=== PATIENT | female | born 1990 | race Caucasian/White ===

== ENCOUNTER → 2018-02-05 | Outpatient (CLI) | payer OTHER ==
--- NOTE | 2018-02-06 08:45 | MM ---
Reason for exam: clinical finding. Indicated problem(s): lump or thickening in the right breast. Physical Findings: Nurse Summary: 1 x 0.5 x 0.5cm nodule in the right breast at 3 o'clock/12 o'clock and a 1 x 0.5cm nodule in the left breast at 1 o'clock (nurse ts). MG 3D Diag Mammo W/Cad VERÓNICA Bilateral CC and MLO view(s) were taken. The breast tissue is heterogeneously dense. This may lower the sensitivity of mammography. There is no dominant lesion. These results were verbally communicated with the patient and result sheet given to the patient on 02/05/18. ASSESSMENT: Incomplete: need additional imaging evaluation, BI-RAD 0 RECOMMENDATION: Ultrasound of both breasts. (palpable by nurse)
--- NOTE | 2018-02-06 08:58 | USB ---
Reason for exam: clinical finding. US Breast BILAT Right complete breast ultrasound includes all four quadrants, the retroareolar region and axilla. Finding demonstrates a 0.2 x 0.2 x 0.2cm oval, cystic lesion at 3 o'clock, a 0.4 x 0.4 x 0.3cm oval, lobular, cystic lesion at 7 o'clock and a 0.6 x 0.6 x 0.2cm oval, cystic lesion at 10 o'clock. Left complete breast ultrasound includes all four quadrants, the retroareolar region and axilla. Finding demonstrates a 0.4 x 0.3 x 0.2cm oval, cystic lesion at 1 o'clock. Consistent with benign fibrocystic change. These results were verbally communicated with the patient and result sheet given to the patient on 02/05/18. ASSESSMENT: Benign, BI-RAD 2 RECOMMENDATION: Clinical management of both breasts. Manage patient on a clinical basis.
== END | disposition home or self-care (01) ==
LOC: RADMAMWWP 13:46
PROVIDERS: ATTEND Family Medicine
DX: N63.10 Unspecified lump in the right breast, unspecified quadrant (principal)
CPT/HCPCS: 77062; 77066

== ENCOUNTER → 2018-04-17 | Outpatient (CLI) | payer OTHER ==
--- NOTE | 2018-04-19 11:39 | MR ---
EXAMINATION TYPE: MR lumbar spine wo/w con DATE OF EXAM: 04/17/2018 COMPARISON: Prior exam 11/23/2015 HISTORY: LBP, lt sciatica pain, prior surgery TECHNIQUE: Multiplanar, multisequence images of the lumbar spine were acquired utilizing 5.5 mL intravenous Gada vist gadolinium contrast. L1-L2: Normal disc appearance without desiccation. No herniation, protrusion or disc bulging. No ca nal stenosis is present. Foramina are patent bilaterally. L2-L3: Normal disc appearance without desiccation. No herniation, protrusion or disc bulging. No ca nal stenosis is present. Foramina are patent bilaterally. There is some facet arthropathy present wi th hypertrophy ligamentum flavum. L3-L4: Normal disc appearance without desiccation. No herniation, protrusion or disc bulging. No ca nal stenosis is present. Foramina are patent bilaterally. Facet arthropathy is present. L4-L5: Facet arthropathy is present causing some local mass effect posterior laterally on the thecal sac, no significant central stenosis or evident disc herniation. No foraminal encroachment. L5-S1: Laminectomy change is present. There is no significant spinal stenosis or foraminal encroachme nt. No disc herniation. Lumbar segments are intact. No paraspinal masses are identified. Conus medullaris has a normal appe arance. Patient is status post posterior lumbar sacral fusion L5-S1, susceptibility artifact due to p atient's hardware is present. Intervertebral spacing blocks present at L5-S1. No abnormal enhancement following contrast administration. IMPRESSION: Postop changes. Facet arthropathy.
== END | disposition home or self-care (01) ==
LOC: RADMRIMAIN 20:00
PROVIDERS: ATTEND Physician Assistant
DX: M46.96 Unspecified inflammatory spondylopathy, lumbar region (principal); Z98.890 Other specified postprocedural states
CPT/HCPCS: 72158; A9581

== ENCOUNTER → 2019-06-07 | Outpatient (CLI) | payer OTHER ==
--- NOTE | 2019-06-07 22:12 | MR ---
EXAMINATION TYPE: MR lumbar spine wo/w con DATE OF EXAM: 06/07/2019 COMPARISON: Prior lumbar MRI 04/17/2018 HISTORY: Lumbago with Sciatica / Effusion TECHNIQUE: Multiplanar, multisequence images of the lumbar spine were acquired utilizing 6.5 mL intravenous Gada vist gadolinium contrast. L1-L2: Normal disc appearance without desiccation. No herniation, protrusion or disc bulging. No ca nal stenosis is present. Foramina are patent bilaterally. L2-L3: Normal disc appearance without desiccation. No herniation, protrusion or disc bulging. No ca nal stenosis is present. Foramina are patent bilaterally. L3-L4: Normal disc appearance without desiccation. No herniation, protrusion or disc bulging. No ca nal stenosis is present. Foramina are patent bilaterally. L4-L5: Facet arthropathy noted. No significant foraminal encroachment. No central stenosis. L5-S1: Stable appearance. Postop changes. No significant central stenosis. No foraminal encroachment evident. Laminectomy change. Lumbar segments are intact. No paraspinal masses are identified. Conus medullaris has a normal appe arance. Posterior fusion at L5-S1 again noted, there is susceptibility artifact due to patient's hard barrow, intervertebral spacing cage is present. No abnormal enhancement on contrast administration. IMPRESSION: Stable postoperative findings.
== END ==
LOC: RADMRIMAIN 16:59
PROVIDERS: ATTEND Physician Assistant Medical
DX: M54.42 Lumbago with sciatica, left side (principal); M43.26 Fusion of spine, lumbar region; Z98.890 Other specified postprocedural states
CPT/HCPCS: 72158; A9585

== ENCOUNTER → 2019-09-27 | Outpatient (CLI) | payer OTHER ==
--- NOTE | 2019-09-27 12:10 | XR ---
EXAMINATION TYPE: XR wrist complete RT DATE OF EXAM: 09/27/2019 CLINICAL HISTORY: Pain in the right wrist after fall approximately 2 weeks ago TECHNIQUE: Frontal, lateral and oblique images of the right wrist are obtained. COMPARISON: None FINDINGS: There is no acute fracture/dislocation evident in the right wrist. The joint spaces in th e right wrist appear within normal limits. The overlying soft tissue appears unremarkable. IMPRESSION: There is no acute fracture or dislocation in the right wrist.
== END | disposition home or self-care (01) ==
LOC: RADXRYALE 10:24
PROVIDERS: ATTEND Physician Assistant Medical
DX: M79.641 Pain in right hand (principal); M25.531 Pain in right wrist

== ENCOUNTER → 2020-10-20 | Outpatient (CLI) | payer OTHER ==
--- NOTE | 2020-10-20 15:26 | XR ---
EXAMINATION TYPE: XR chest 1V DATE OF EXAM: 10/20/2020 COMPARISON: 10/28/2012 INDICATION: Chest pain TECHNIQUE: Single frontal view of the chest is obtained. FINDINGS: The heart size is normal. The pulmonary vasculature is normal. The lungs are clear. IMPRESSION: 1. No acute pulmonary process.
== END | disposition home or self-care (01) ==
LOC: RADXRYALE 14:42
PROVIDERS: ATTEND Physician Assistant
DX: R07.1 Chest pain on breathing (principal)
CPT/HCPCS: 71045

== ENCOUNTER → 2020-10-30 | Outpatient (CLI) | payer OTHER ==
--- NOTE | 2020-10-30 10:43 | CT ---
EXAMINATION TYPE: CT brain wo con DATE OF EXAM: 10/30/2020 COMPARISON: CT brain September 06, 2015. MRI brain September 07, 2014. HISTORY: Dizziness, headache and tunnel vision x 7-[address] DLP: 1174 mGycm. Automated Exposure Control for Dose Reduction was Utilized. TECHNIQUE: CT scan of the head is performed without contrast. FINDINGS: There is no acute intracranial hemorrhage, mass effect, or midline shift identified. The ventricles and sulci are within normal limits in size. Quijano-white matter differentiation is maintain ed. Nasal septum remains deviated to right of midline. No suspicious new opacification mastoid air ce lls. The globes are intact and the visualized sinuses are clear. IMPRESSION: Unremarkable study. No significant change from prior CT.
== END | disposition home or self-care (01) ==
LOC: RADCTMAIN 10:14
PROVIDERS: ATTEND Physician Assistant Medical
DX: R42 Dizziness and giddiness (principal); R51.9 Headache, unspecified
CPT/HCPCS: 70450

== ENCOUNTER → 2020-12-14 | Outpatient (CLI) | payer OTHER ==
--- NOTE | 2020-12-14 14:39 | XR ---
EXAMINATION TYPE: XR thoracic spine complete DATE OF EXAM: 12/14/2020 CLINICAL HISTORY: Pain and numbness down left arm, radiculopathy, recent weightlifting injury. TECHNIQUE: Frontal, lateral, and swimmer's view of thoracic spine are obtained. COMPARISON: None. FINDINGS: Thoracic spine show satisfactory alignment without evidence of acute fracture or dislocatio n. Vertebral body heights and disc space heights are preserved. Visualized ribs are unremarkable. Cholecystectomy clips incidentally noted. IMPRESSION: As above.
--- NOTE | 2020-12-14 14:39 | XR ---
EXAMINATION TYPE: XR cervical spine comp DATE OF EXAM: 12/14/2020 TECHNIQUE: Frontal, lateral, oblique, and open mouth view of the cervical spine are obtained. HISTORY: [id number],[id number] RADICULOPATHY,CERVICALGIA,THOR JIMMIE pain and numbness down left arm after in jury one week ago. COMPARISON: None FINDINGS: The cervical spine is visualized in its entirety from C1 thru the top of T1 level, it is s traightened in alignment without evidence of acute fracture or dislocation. The pre-vertebral soft t issue appears within normal limits. The C1-C2 articulation is within normal limits on the open mouth view. Vertebral body heights and disc space heights are maintained. The oblique images are within n ormal limits. Overlying soft tissue is unremarkable. IMPRESSION: As above.
== END | disposition home or self-care (01) ==
LOC: RADXRYALE 14:17
PROVIDERS: ATTEND Physician Assistant Medical
DX: M54.2 Cervicalgia (principal); M54.6 Pain in thoracic spine
CPT/HCPCS: 72050; 72072

== ENCOUNTER 2021-04-12 18:01 | Emergency (ER) | payer OTHER ==
[2021-04-12 18:05] VITALS: TEMP 98.7
[2021-04-12] MEDS ORDERED: diazePAM 5 MG TAB PO STA (20:51)
[2021-04-12] MEDS ORDERED: KETOROLAC 15 MG/ML 1 ML VIAL IM STA (20:51)
[2021-04-12 22:04] VITALS: BP 134/72; PULSE 62; RESP 19
--- NOTE | 2021-04-12 22:06 | XR ---
PROCEDURE: XR lumbar spine - 3V DATE AND TIME: 04/12/2021 9:17 PM CLINICAL INDICATION: PHH; pain after lifting TECHNIQUE: Department protocol COMPARISON: 11/22/2015 FINDINGS: There is no fracture or malalignment. The soft tissues are unremarkable. IMPRESSION: NO ACUTE PROCESS.
[2021-04-12] MEDS ORDERED: MORPHINE SULFATE 2 MG/ML SYRINGE IM STA (22:11)
[2021-04-12] MEDS ORDERED: traMADol 50 MG STARTER PACK 3 TAB BTL PO STA (22:12)
--- NOTE | 2021-04-12 22:16 | ED ---
Back Pain HPI - General Chief Complaint: Back Pain/Injury Stated Complaint: back pain Time Seen by Provider: 04/12/21 20:24 Source: patient Limitations: no limitations - History of Present Illness Initial Comments: Patient is a 30-year-old female presenting to emergency Department with complaints of low back pain that started this morning. Patient states she went to pick up man her niece from the car seat and felt a pop in her low back. She states ever since then she has been having spasming of her low back. She does have history of 3 laminectomies and a fusion of L5 and S1. She can normally control her pain with Tylenol and Motrin and heat to the area. She states she has been trying this all day today without relief of symptoms. She is also experiencing some left-sided sciatica which she's had in the past. She feels like with the spasming is making her sciatica worse. She denies any bowel or bladder incontinence, no saddle paresthesias. She has no numbness and tingling into her lower extremities. No fevers or chills. No abdominal pain. She denies being . She has no further complaints. - Related Data Previous Rx's Medication Instructions Recorded Cyclobenzaprine [Flexeril] 10 mg PO TID PRN #10 tab 04/12/21 Allergies Allergy/AdvReac Type Severity Reaction Status Date / Time ciprofloxacin [From Cipro] AdvReac Nausea & Verified 04/12/21 18:05 Vomiting & Diarrhea Review of Systems ROS Statement: Those systems with pertinent positive or pertinent negative responses have been documented in the HPI. ROS Other: All systems not noted in ROS Statement are negative. Past Medical History Past Medical History: Thyroid Disorder Additional Past Medical History / Comment(s): Syncope, chronic back pain History of Any Multi-Drug Resistant Organisms: None Reported Past Surgical History: Adenoidectomy, Appendectomy, Back Surgery, Cholecystectomy, Tubal Ligation Additional Past Surgical History / Comment(s): Lumbar laminectomy Past Anesthesia/Blood Transfusion Reactions: No Reported Reaction Past Psychological History: Bipolar, Depression Smoking Status: Never smoker Past Alcohol Use History: None Reported Past Drug Use History: None Reported - Past Family History Mother Additional Family Medical History / Comment(s): Mother is alive at age 50 with no known medical problems. Father Additional Family Medical History / Comment(s): Father is alive at age 51 with history of bipolar, depression, Hepatitis C Brother(s) Additional Family Medical History / Comment(s): Patient has 2 half brothers, 2 full sisters and 2 half sisters all with no major medical problems. General Exam - General Exam Comments Initial Comments: GENERAL: Patient is well-developed and well-nourished. Patient is nontoxic and in mild distress. HEAD: Atraumatic, normocephalic. EYES: Pupils equal round and reactive to light, extraocular movements intact, sclera anicteric, conjunctiva are normal. Eyelids were unremarkable. ENT: Moist mucous membranes. NECK: Normal range of motion, supple without lymphadenopathy or JVD. LUNGS: Unlabored respirations. Breath sounds clear to auscultation bilaterally and equal. No wheezes rales or rhonchi. HEART: Regular rate and rhythm without murmurs, rubs or gallops. ABDOMEN: Soft, nontender, normoactive bowel sounds. No guarding, no rebound. No masses appreciated. : Deferred MUSCULOSKELETAL: Normal extremities with adequate strength and normal range of motion, no pitting or edema. No clubbing or cyanosis. She has pain with palpation of the lumbar spine, lumbar paraspinals, worse on the right with spasming present. Increases with trunk flexion and full extension. NEUROLOGICAL: Patient is alert and oriented x 3. Motor and sensory are also intact. Cranial nerves II through XII grossly intact. Symmetrical smile. Normal speech, normal gait. PSYCH: Normal mood, normal affect. SKIN: Warm, Dry, normal turgor, no rashes or lesions noted. Limitations: no limitations Course Vital Signs 04/12/21 04/12/21 18:03 22:00 Temperature 98.7 F Pulse Rate 82 62 Respiratory 18 19 Rate Blood Pressure 126/87 134/72 O2 Sat by Pulse 100 99 Oximetry Medical Decision Making - Medical Decision Making Patient is a 30-year-old female here with low back pain after she picked up her niece this morning out of a car seat. She states she felt a pop in her back. She does have a history of laminectomies, fusion of L5 and S1. X-ray stay showed no acute process, no fracture dislocations. Patient was given pain control and muscle relaxers, she does report some mild redness symptoms. I discussed the patient is most likely muscle spasms. I recommended continuing with heat to the area, gentle stretching. I will give her a prescription for starter pack of tramadol and a prescription for some muscle relaxers to go home with. She is agreeable as planned care. She'll follow up with her primary care. Disposition Clinical Impression: Strain of lumbar region, Back muscle spasm Disposition: HOME SELF-CARE Condition: Stable Instructions (If sedation given, give patient instructions): Acute Low Back Pain (ED) Additional Instructions: Please return to the Emergency Department if symptoms worsen or any other concerns. recommend heat to the area, rest and gentle massage. May alternate Tylenol with tramadol for pain relief. May also take muscle relaxers. Follow-up with your primary care. Prescriptions: Cyclobenzaprine [Flexeril] 10 mg PO TID PRN #10 tab PRN Reason: Muscle Spasm Is patient prescribed a controlled substance at d/c from ED?: No Referrals: Fausto Ruby DO [Primary Care Provider] - 1-2 days Time of Disposition: 22:15
== END 2021-04-12 22:25 | disposition home or self-care (01) ==
LOC: EC 18:01
DX: S39.012A Strain of muscle, fascia and tendon of lower back, initial encounter (principal); Z88.1 Allergy status to other antibiotic agents; X50.9XXA Other and unspecified overexertion or strenuous movements or postures, initial encounter
CPT/HCPCS: 72100; 99283; 96372; J2270; J1885

== ENCOUNTER → 2021-06-01 | Outpatient (CLI) | payer OTHER ==
--- NOTE | 2021-06-01 10:59 | XR ---
EXAM TYPE: LUMBAR SPINE X RAY SERIES COMPARISON: 04/12/2021 HISTORY: Pain TECHNIQUE: 4 views are submitted. FINDINGS: Alignment is anatomic. The pedicles are intact. The transverse processes are intact. There is post surgical change L5-S1 with near anatomic alignment. Surgical clips in the abdomen. There is. Minimal anterolisthesis of L5 relative to S1. Postsurgical changes involving the pelvis. IMPRESSION: 1. Postoperative change L5-S1 with minimal anterolisthesis.
== END | disposition home or self-care (01) ==
LOC: RADXRYALE 09:50
PROVIDERS: ATTEND Physician Assistant Medical
DX: M54.42 Lumbago with sciatica, left side (principal); W01.0XXA Fall on same level from slipping, tripping and stumbling without subsequent striking against object, initial encounter
CPT/HCPCS: 72110

== ENCOUNTER → 2021-07-02 | Outpatient (CLI) | payer OTHER ==
--- NOTE | 2021-07-02 16:00 | MR ---
EXAMINATION TYPE: MR lumbar spine wo/w con DATE OF EXAM: 07/02/2021 COMPARISON: 06/07/2019 HISTORY: 31-year-old female M54.42, Lumbago with sciatica, L5-S1 fusion Technique: Multiplanar, multisequence images of the lumbar spine were obtained before and after admin istration of 5.5 mL intravenous Gadavist gadolinium contrast. FINDINGS: Vertebral body heights are preserved and alignment is maintained. Conus medullaris is normal. No suspicious bone marrow replacement. Redemonstrated L5-S1 posterior lumbar fusion with corresponding laminectomies. From T12 through L4 levels, the spinal canal or foraminal stenosis. At L4-L5, there is mild facet degenerative change contributing to minimal inferior neural foraminal n arrowing on the right. No spinal canal stenosis. At L5-S1, there is dorsal decompression of the spinal canal. No spinal canal stenosis. There is some focal low signal intensity along the left lateral recess, refer to sagittal T1 image 4 series 501 and axial T1 images 2 and 3. There seems to be some slight enhancement around this region on postcontrast sequences and it corresponds to the traversing left S1 nerve root. Similar moderate l eft neuroforaminal stenosis. No prevertebral or paravertebral soft tissue modality seen. Otherwise, no abnormal enhancement in the spinal canal. IMPRESSION: 1. Status post L5-S1 posterior and interbody fusion with corresponding laminectomies. 2. There is some focal low signal intensity along the L5-S1 left lateral recess that shows slight enh ancement. Better seen on the current exam. Unable to exclude some perineural fibrosis/granulation tis jasper along the traversing left S1 nerve root. Correlate for any corresponding radicular symptoms. 3. Similar moderate left neuroforaminal stenosis here at L5-S1. 4. Mild facet arthropathy above the fusion at L4-L5. No spinal canal stenosis.
== END | disposition home or self-care (01) ==
LOC: RADMRIMAIN 07:13
PROVIDERS: ATTEND Physician Assistant Medical
DX: M54.42 Lumbago with sciatica, left side (principal); M48.07 Spinal stenosis, lumbosacral region; M47.896 Other spondylosis, lumbar region; W01.0XXA Fall on same level from slipping, tripping and stumbling without subsequent striking against object, initial encounter
CPT/HCPCS: 72158

== ENCOUNTER → 2023-12-25 | Outpatient (CLI) | payer MEDICAID ==
--- NOTE | 2023-12-26 08:55 | US ---
EXAMINATION TYPE: US thyroid st tissue head/neck DATE OF EXAM: 12/25/2023 COMPARISON: US CLINICAL INDICATION: Female, 33 years old with history of R94.6 ABNORMAL THYROID LABS; Abnormal labs GLAND SIZE: Right Lobe: 4.5 x 1.4 x 1.5 cm Overall Parenchyma: homogeneous Left Lobe: 4.2 x 1.4 x 1.3 cm Overall Parenchyma: homogeneous Isthmus Thickness: 0.3 cm NODULES RIGHT: # of nodules measured on right: 0 LEFT: # of nodules measured on left: 0 ISTHMUS: # of nodules measured in the isthmus: 0 Bilateral neck scanned, no evidence of lymphadenopathy. Thyroid appeared wnl bilaterally. IMPRESSION: 1. No thyromegaly. 2. No thyroid nodules. 2017 ACR TI-RADS LEVEL: 0 *Highest TI-RADS level nodule reported
== END | disposition home or self-care (01) ==
LOC: RADUSWWP 13:17
PROVIDERS: ATTEND Family Medicine
DX: R94.6 Abnormal results of thyroid function studies (principal)
CPT/HCPCS: 76536